=== PATIENT | female | born 1980 | race African-American/Black ===

== ENCOUNTER 2021-07-25 13:10 | Emergency (ER) | payer MEDICAID ==
[~2021-07-25] VITALS: Ht 170.2 cm; Wt 59.0 kg
[2021-07-25 13:28] VITALS: BP 133/76
[2021-07-25] MEDS ORDERED: ACETAMINOPHEN 325MG TABLET PO ONE (13:45)
[2021-07-25] MEDS ORDERED: PREDNISONE 20MG TABLET PO ONE (14:00)
[2021-07-25] MEDS ORDERED: LORATADINE 10MG TABLET PO SCH (14:00)
[2021-07-25 16:05] LABS: CLARITY URINE CLEAR (CLEAR); COLOR URINE YELLOW (YELLOW); KETONES URINE 1+ (NEGATIVE); LEUKOCYTE ESTERASE URINE NEGATIVE (NEGATIVE); NITRITE URINE NEGATIVE (NEGATIVE); OCCULT BLOOD URINE 2+ (NEGATIVE); PH URINE 7.5 (4.5-8.0); PROTEIN URINE TRACE (NEGATIVE); UROBILINOGEN URINE 0.2 E.U./dL (0.2-1.0)
[2021-07-25 16:36] LABS: BASOPHILS % 0.7 % (0.0-2.0); HEMATOCRIT. 36.5 % (36.0-48.0); HEMOGLOBIN. 12.5 g/dL (12.0-16.0); MEAN CORPUSCULAR HEMOGLOBIN 32.6 pg (28.0-32.0); MEAN CORPUSCULAR VOLUME 95.1 fL (81.0-99.0); MEAN PLATELET VOLUME 7.7 fl (7.4-10.4); MONOCYTES % 5.3 % (2.0-8.0); PLATELET 149 x1000/uL (130-400); RED BLOOD CELL COUNT 3.84 mill/uL (4.2-5.4); RED CELL DISTRIBUTION WIDTH 12.5 % (11.6-14.6)
[2021-07-25 16:37] LABS: CHLORIDE 107 mEq/L (98-107)
[2021-07-25] MEDS ORDERED: LORA5TAB8 MT (17:11)
[2021-07-25] MEDS ORDERED: METR500T MT (17:11)
[2021-07-25] MEDS ORDERED: P20 MT (17:11)
[2021-07-29 04:07] LABS: NEISSERIA GONORRHOEAE NAA Negative (Negative)
[2021-07-29 09:10] LABS: HIV SCREEN 4G Non Reactive (Non Reactive)
[2021-07-30 04:07] LABS: HSV 1 & 2 AB IGM <0.91 Ratio (0.00-0.90)
== END 2021-07-25 17:49 | disposition home or self-care (01) ==
LOC: ER 14:14
DX: N76.0 Acute vaginitis (principal)
CPT/HCPCS: 36415; 80053; 81003; 85025; 86592; 86694; 86695; 86696; 87210; 87389; 87491; 87591; 99284; J7512

== ENCOUNTER 2022-03-08 22:30 | Emergency (ER) | payer MEDICAID ==
[~2022-03-08] VITALS: Ht 170.2 cm; Wt 59.0 kg
[~2022-03-08 22:30] MED LIST: LORA5TAB8 MT; METR500T MT; P20 MT
[2022-03-09] MEDS ORDERED: IBUP-2029 MT (00:29)
[2022-03-09] MEDS ORDERED: GUAI-793 MT (00:29)
[2022-03-09 00:31] VITALS: BP 121/76
== END 2022-03-09 00:40 | disposition home or self-care (01) ==
LOC: ER 22:30
DX: B34.9 Viral infection, unspecified (principal); Z20.822 Contact with and (suspected) exposure to COVID-19
CPT/HCPCS: 71045; 87426; 99284; C9803

== ENCOUNTER 2022-06-15 00:37 | Emergency (ER) | payer MEDICAID ==
[~2022-06-15] VITALS: Ht 167.6 cm; Wt 61.5 kg
[~2022-06-15 00:37] MED LIST changes: +GUAI-793 MT; +IBUP-2029 MT
[2022-06-15 00:43] VITALS: BP 120/69
[2022-06-15 04:26] LABS: BASOPHILS % 0.8 % (0.0-2.0); EOSINOPHILS % 3.1 % (0.0-5.0); HEMATOCRIT. 35.9 % (36.0-48.0); HEMOGLOBIN. 12.1 g/dL (12.0-16.0); LYMPHOCYTES % 46.9 % (20.0-50.0); MEAN CORPUSCULAR HEMOGLOBIN 32.9 pg (28.0-32.0); MEAN CORPUSCULAR VOLUME 97.9 fL (81.0-99.0); MEAN PLATELET VOLUME 7.3 fl (7.4-10.4); MONOCYTES % 12.8 % (2.0-8.0); NEUTROPHILS % 36.4 % (40.0-76.0); PLATELET 207 x1000/uL (130-400); RED BLOOD CELL COUNT 3.66 mill/uL (4.2-5.4); RED CELL DISTRIBUTION WIDTH 13.1 % (11.6-14.6)
[2022-06-15 04:30] LABS: CHLORIDE 107 mEq/L (98-107)
[2022-06-15] MEDS ORDERED: TOPUD PO (07:40)
== END 2022-06-15 08:24 | disposition home or self-care (01) ==
LOC: ER 00:57
DX: R07.2 Precordial pain (principal)
CPT/HCPCS: 36415; 71045; 80053; 84484; 85025; 93005; 99285